=== PATIENT | female | born 1970 | race Caucasian/White ===

== ENCOUNTER → 2020-02-08 11:33 | Outpatient (CLI) | payer OTHER, SELFPAY ==
--- NOTE | 2020-02-08 | DI.US.S_ITS ---
PROCEDURE: US PELVIC COMPLETE INDICATIONS: FEMALE INFLAMMATORY DISEASE, UNSPECIFIED TECHNIQUE: Real-time scanning was performed of the pelvic organs, with image documentation. Additional endovaginal scanning was necessary due to incomplete visualization of the adnexal and endometrial structures by transabdominal scanning. COMPARISON: None. FINDINGS: Transabdominal scanning: Limited scanning through the kidneys shows no hydronephrosis. No pathologic free abdominal or pelvic fluid. Endovaginal scanning: Uterus: Uterus is enlarged in size at 15.3 x 6.6 x 7.2 cm. The endometrium measures 16 mm in combined thickness. Numerous uterine fibroids are present including midline posterior fibroid measuring 2.2 x 2.5 x 2.1 cm. Midline anterior fibroid measuring 2.1 x 2.3 x 2.2 cm. Right anterior fibroid measuring 2.0 x 1.8 x 2.0 cm. Additional smaller fibroids are present Ovaries: Right ovary measures 4.9 x 3.3 x 3.2 cm. There is a right ovarian cystic lesion measuring 3.0 cm, technically indeterminate. Left ovary is not sonographically visible IMPRESSION: Multiple uterine fibroids as above Right ovarian cystic lesion, technically non-specific. Cystic neoplastic possibilities cannot be excluded in the absence of prior studies. Recommend continued ultrasound surveillance. Left ovary not sonographically visible or evaluated Dictated by: Shaquille Montero M.D. on 02/08/2020 at 16:43 Approved by: Shaquille Montero M.D. on 02/08/2020 at 16:45
== END ==
PROVIDERS: PCP Physician Assistant Medical; Referring Provider Physician Assistant Medical; Visit Provider Physician Assistant Medical
DX: N73.9 Female pelvic inflammatory disease, unspecified (principal); R87.5 Abnormal microbiological findings in specimens from female genital organs; D25.9 Leiomyoma of uterus, unspecified; N83.201 Unspecified ovarian cyst, right side
CPT/HCPCS: 76830; 76856

== ENCOUNTER 2020-02-09 12:12 | Emergency (ER) | payer OTHER, SELFPAY ==
--- NOTE | 2020-02-09 12:24 | ED.GENADULT ---
HPI - General Adult General Chief complaint: Abdominal Pain Stated complaint: Pelvic pain/Needs IV and run tests Time Seen by Provider: 02/09/20 12:18 History of Present Illness HPI narrative: Otherwise healthy 49-year-old young woman who had an IUD removed 2 weeks ago. The IUD had been in place for almost 20 years. The removal itself was reportedly unremarkable, it sounds like the strings were not easily visible there were 3 attempts needed but the device came out without significant pain. One week Afterward, she developed fevers and pelvic pain was seen by her primary care provider who had started her on Augmentin a 1000 mg, 2 pills b.i.d. and ordered a pelvic ultrasound. Results are included today. Pain and fevers or worsening and she is sent to the emergency department with a presumptive diagnosis of pelvic inflammatory disease post IUD removal for further evaluation and consideration of IV antibiotics. She describes pelvic pain radiating to her sacrum. Significant tenderness with the intravaginal probe that was done with the ultrasound yesterday, no discharge, she has had no new sexual partners. She is having no vaginal bleeding. There is no odors from her vagina. She notes that with 4 days of Augmentin her symptoms have not improved at all. She is now developing more peritoneal type symptoms worse with bouncing in the car and sitting. Describes fevers as high as 102? over the last couple of days, no dysuria, no diarrhea no vomiting, no chest pain, no cough. Related Data Home Medications Medication Instructions Recorded Confirmed amoxicillin-pot clavulanate 2 tab PO Q12H 02/09/20 02/09/20 escitalopram oxalate 10 mg PO QPM 02/09/20 02/09/20 ibuprofen 200 mg PO PRN PRN 02/09/20 02/09/20 loratadine-pseudoephedrine 1 tab PO DAILY PRN 02/09/20 02/09/20 [Lorata-D] norethindrone-e.estradiol-iron [Lo 1 tab PO QPM 02/09/20 02/09/20 Loestrin Fe] olopatadine 1 drp OPHTHALMIC (EYE) BID 02/09/20 02/09/20 Previous Rx's Medication Instructions Recorded doxycycline hyclate 100 mg PO BID #14 cap 02/09/20 naproxen [Naprosyn] 500 mg PO BID #60 tab 02/09/20 Allergies Allergy/AdvReac Type Severity Reaction Status Date / Time No Known Drug Allergies Allergy Verified 02/09/20 14:24 Review of Systems Review of Systems Narrative: All systems reviewed and are unremarkable except as noted in HPI and below Patient History Medical History (Updated 02/09/20 @ 14:56 by Bell Goncalves MD) Healthy adult (Acute) Exam Narrative Exam Narrative: General: Healthy appearing, in no acute distress. Able to give a complete and coherent history. Well-nourished well-developed HEENT: Moist mucous membranes, normal sclera with reactive pupils, Neck: No JVD, supple Respiratory: Lungs are clear to auscultation, no wheezing no rales no rhonchi. Full and symmetrical air movement Cardiac: Regular rate and rhythm no murmurs no bruits Abdomen: Soft, tender suprapubic without rebound or guarding, good bowel tones, no flank pain Pelvic: Cervical motion tenderness yesterday with ultrasound exam, no new discharge she declines repeat bimanual exam today due to pain Skin: Warm and dry, no rashes Neurologic: Grossly neurologically intact with no obvious asymmetries or abnormalities Extremities: No trauma, well perfused Psych: Cooperative, appropriate insight and affect Initial Vital Signs Initial Vital Signs: Vital Signs Temperature 98.0 F 02/09/20 12:28 Pulse Rate 75 02/09/20 12:28 Respiratory Rate 14 02/09/20 12:28 Blood Pressure 137/85 02/09/20 12:28 Pulse Oximetry 98 02/09/20 12:28 Course Orders Ordered: ED Orders 02/09/20 12:55 Complete Blood Count AUTO DIFF Stat Comprehensive Metabolic Panel Stat Lactate (Lactic Acid) Stat 02/09/20 13:17 Blood Culture Stat 02/09/20 14:09 CT abdomen pelvis w con Stat Discontinued Medications Doxycycline Hyclate (Vibramycin) 100 mg PO NOW ONE Stop: 02/09/20 12:53 Last Admin: 02/09/20 14:02 Dose: 100 mg Documented by: CVANCE Cefotetan Disodium/Dextrose (Cefotan) 2 gm in 50 mls @ 100 mls/hr IV NOW ONE Stop: 02/09/20 13:21 Last Admin: 02/09/20 14:00 Dose: 100 mls/hr Documented by: CVANCE Sodium Chloride (Normal Saline 0.9%) 1,000 mls @ 1,000 mls/hr IV BOLUS ONE Stop: 02/09/20 13:51 Last Admin: 02/09/20 14:30 Dose: 1,000 mls/hr Documented by: CADE Ketorolac Tromethamine (Toradol) 15 mg IV NOW ONE Stop: 02/09/20 12:53 Last Admin: 02/09/20 13:04 Dose: 15 mg Documented by: CADE Vital Signs Vital signs: Vital Signs - 8 hr 02/09/20 12:28 02/09/20 14:47 Temperature 98.0 F 97.6 F Pulse Rate 75 67 Respiratory Rate 14 12 Blood Pressure 137/85 Blood Pressure [Right Arm] 137/94 H Pulse Oximetry 98 99 Medical Decision Making Lab Data Result diagrams: 02/09/20 12:55 02/09/20 12:55 Labs: Lab Results 02/09/20 02/09/20 02/09/20 Range/Units 12:55 12:55 12:55 WBC 8.3 (4.5-11.0) X10^3/uL RBC 4.89 (4.0-5.2) X10^6/uL Hgb 14.2 (12.0-16.0) g/dL Hct 41.3 (36-46) % MCV 84.5 (80-100) fL MCH 29.0 (26-34) PG MCHC 34.3 (30-36) % RDW 13.8 (11.6-14.8) % Plt Count 231 (150-400) X10^3/uL Neut % (Auto) 65.4 (50-75) % Lymph % (Auto) 28.5 (25-40) % [place]ett % (Auto) 5.2 (3-14) % Eos % (Auto) 0.4 L (2-4) % Baso % (Auto) 0.5 (0-2) % Neut # (Auto) 5500 (2277-2166) /uL Lymph # (Auto) 2400 (7268-2289) /uL Pickett # (Auto) 400 (0-900) /uL Eos # (Auto) 0 (0-450) /uL Baso # (Auto) 0 (0-100) /uL Sodium 136 L (137-145) mmol/L Potassium 4.6 (3.4-5.1) mmol/L Chloride 104 (98-107) mmol/L Carbon Dioxide 24 (22-32) mmol/L BUN 15 (7-17) mg/dL Creatinine 0.60 (0.52-1.04) mg/dL Estimated GFR > 60.0 (>60) mL/min BUN/Creatinine Ratio 25.0 H (6-22) Glucose 99 (70-100) mg/dL Lactate 0.6 L (0.7-2.1) mmol/L Calcium 9.2 (8.4-10.2) mg/dL Total Bilirubin 0.6 (0.2-1.3) mg/dL AST 28 (14-36) IU/L ALT 17 (<35) IU/L Alkaline Phosphatase 51 (38-126) U/L Total Protein 8.0 (6.3-8.2) g/dL Albumin 4.5 (3.5-5.0) g/dL Globulin 3.5 (1.7-4.1) g/dL Albumin/Globulin Ratio 1.3 (1.0-2.8) Urine Dip Bedside Urine Glucose Negative Bedside Urine Bilirubin - Negative Bedside Urine Ketone - Negative Urine Specific [place] 1.010 Bedside Urine Occult Blood - Negative Bedside Urine pH 7.0 Bedside Urine Protein - Negative Bedside Urine Urobilinogen - Negative Bedside Urine Nitrite - Negative Bedside Urine Leukocytes - Negative Esterase Point of care testing: Urine Dip Bedside Urine Glucose Negative Bedside Urine Bilirubin - Negative Bedside Urine Ketone - Negative Urine Specific [place] 1.010 Bedside Urine Occult Blood - Negative Bedside Urine pH 7.0 Bedside Urine Protein - Negative Bedside Urine Urobilinogen - Negative Bedside Urine Nitrite - Negative Bedside Urine Leukocytes - Negative Esterase Imaging Data Pelvic ultrasound 02/08/2020: Radiologist's Impression: FINDINGS: Transabdominal scanning: Limited scanning through the kidneys shows no hydronephrosis. No pathologic free abdominal or pelvic fluid. Endovaginal scanning: Uterus: Uterus is enlarged in size at 15.3 x 6.6 x 7.2 cm. The endometrium measures 16 mm in combined thickness. Numerous uterine fibroids are present including midline posterior fibroid measuring 2.2 x 2.5 x 2.1 cm. Midline anterior fibroid measuring 2.1 x 2.3 x 2.2 cm. Right anterior fibroid measuring 2.0 x 1.8 x 2.0 cm. Additional smaller fibroids are present Ovaries: Right ovary measures 4.9 x 3.3 x 3.2 cm. There is a right ovarian cystic lesion measuring 3.0 cm, technically indeterminate. Left ovary is not sonographically visible IMPRESSION: Multiple uterine fibroids as above Right ovarian cystic lesion, technically non-specific. Cystic neoplastic possibilities cannot be excluded in the absence of prior studies. Recommend continued ultrasound surveillance. Left ovary not sonographically visible or evaluated Dictated by: Shaquille Montero M.D. on 02/08/2020 at 16:43 CT scan - abdomen/pelvis: Radiologist's Impression: IMPRESSION: 1. Fibroid uterus with mildly prominent endometrial thickness. 2. No evidence of acute abdominal process. 3. Incidental note made of probable small lipoma of the liver. Dictated by: Miles Mcpherson M.D. on 02/09/2020 at 14:15 MDM Narrative Medical decision making narrative: 49-year-old perimenopausal woman with increasingly irregular and heavy periods. Two weeks ago with an IUD removed increasing pain and pelvic discomfort since. Was started on antibiotics with no influence. No fevers or other signs of illness. Workup today is unremarkable for infectious disease or other etiologies to explain the pelvic pain. Of note she does have a fairly thick endometrial lining and is overdue for her menstrual cycle. I suspect that with the fibroid uterus and the longstanding IUD removed she has had more uterine irritability and is likely ready to start her menses in the next day or so. We had a long discussion about andrea menopause and symptoms associated with this. She has been noticing increasing irritability as well as irregular and heavier menses recently. Will have her complete her course of Augmentin and drop back to 1 p.o. b.i.d.. Will add 7 days of doxycycline discover any additional uterine infectious disease concerns. Will add 500 mg of Naprosyn b.i.d. for the next couple of days and to continue through the 1st couple of days of her menstrual cycle to reduce uterine irritability and cramping. She will follow-up with her primary care physician and I suggested she consider asking about hormone replacement therapy prior to completely going through menopause to help with some of the perimenopausal symptoms She is safe for home discharge at this time Discharge Plan Departure Patient Disposition: Home Clinical Impression: Pelvic pain Fibroid, uterine Qualifiers: Uterine leiomyoma location: submucous and subserous Qualified Code(s): D25.0 - Submucous leiomyoma of uterus Instructions: DI for Uterine Fibroids Activity Restrictions/Additional Instructions: Thank you for coming in. I am glad that I have not found anything life-threatening nor needing additional workup or hospitalization. I suspect that the pain you are having is from the IUD being removed in the setting of a uterus with quite a few fibroids. The lining of your uterus is fairly thick so I suspect the menstrual cycle that is going to start in the next day or 2 is likely going to be fairly heavy and associated with quite a few cramps. I a.m. going to recommend that you finish the Augmentin that you currently have, you only need 1 pill in the morning and 1 pill at night. To this, I am going to add a prescription for doxycycline 100 mg in the morning and 100 mg at night. I am also going to give you a prescription for Naprosyn 500 mg twice a day. This is a pain reliever similar to ibuprofen and you can take it and drive. It helps control the pain all day long and I think we will find it very helpful with your job and in controlling pain related to your uterus. It is perfectly okay to use it for the 1st few days of your menses to help with menstrual cramps as well. Sometimes it can actually also be helpful in decreasing the total volume of blood that you lose with a menstrual cycle. All prescriptions have been electronically sent to [facility] in [facility] with all the menopausal changes! Prescriptions: New doxycycline hyclate 100 mg capsule 100 mg PO BID Qty: 14 RF: 0 naproxen [Naprosyn] 500 mg tablet 500 mg PO BID Qty: 60 RF: 0 No Action loratadine-pseudoephedrine [Lorata-D] 10-240 mg tablet extended release 24 hr 1 tab PO DAILY PRN (Reason: Allergy Symptoms) RF: 0 olopatadine 0.1 % drops 1 drp ophthalmic (eye) BID RF: 0 escitalopram oxalate 10 mg tablet 10 mg PO QPM RF: 0 amoxicillin-pot clavulanate 1,000-62.5 mg tablet extended release 12 hr 2 tab PO Q12H RF: 0 Lo Loestrin Fe 1 mg-10 mcg (24)/10 mcg (2) tablet 1 tab PO QPM RF: 0 ibuprofen 200 mg Tablet 200 mg PO PRN PRN (Reason: pain) RF: 0 Referrals: Ale Kirk [Primary Care Provider] -
[2020-02-09 12:28] VITALS: BP 137/85; PULSE 75; RESP 14; TEMP 36.7; O2SAT 98; BMI 30.9
[2020-02-09 13:03] LABS: Add Manual Diff / Slide Review NO; Basophils Absolute Auto 0 /uL (0-100); Basophils Percent Auto 0.5 % (0-2); Eosinophils Absolute Auto 0 /uL (0-450); Eosinophils Percent Auto 0.4 % (2-4); Hematocrit 41.3 % (36-46); Hemoglobin 14.2 g/dL (12.0-16.0); Lymphocytes Absolute Auto 2400 /uL (1100-4500); Lymphocytes Percent Auto 28.5 % (25-40); Mean Corpuscular HGB Conc 34.3 % (30-36); Mean Corpuscular Volume 84.5 fL (80-100); Monocytes Absolute Auto 400 /uL (0-900); Monocytes Percent Auto 5.2 % (3-14); Neutrophils Absolute Auto 5500 /uL (1500-7000); Neutrophils Percent Auto 65.4 % (50-75); Platelet Count 231 X10^3/uL (150-400); Red Blood Cell Count 4.89 X10^6/uL (4.0-5.2); Red Cell Distribution Width 13.8 % (11.6-14.8); White Blood Cell Count 8.3 X10^3/uL (4.5-11.0)
[2020-02-09] MEDS: KETOROLAC 60 MG/2 ML VIAL 15 MG IV (13:04)
[2020-02-09 13:15] LABS: Alanine Aminotransferase 17 IU/L (<35); Albumin 4.5 g/dL (3.5-5.0); Albumin Globulin Ratio 1.3 (1.0-2.8); Alkaline Phosphatase 51 U/L (38-126); Aspartate Aminotransferase 28 IU/L (14-36); Bilirubin Total 0.6 mg/dL (0.2-1.3); Blood Urea Nitrogen 15 mg/dL (7-17); Calcium 9.2 mg/dL (8.4-10.2); Carbon Dioxide 24 mmol/L (22-32); Chloride 104 mmol/L (98-107); Estimated Glomerular Filt Rate > 60.0 mL/min (>60); Globulin 3.5 g/dL (1.7-4.1); Glucose 99 mg/dL (70-100); HEMOLYSIS 50 (0-50); Potassium 4.6 mmol/L (3.4-5.1); Sodium 136 mmol/L (137-145)
[2020-02-09 13:16] LABS: Lactate (Lactic Acid) 0.6 mmol/L (0.7-2.1)
[2020-02-09] MEDS: CEFOTETAN 2 GM/50 ML PIGGYBACK IV (14:00)
[2020-02-09] MEDS: DOXYCYCLINE HYCLATE 100 MG TABLET PO (14:02)
--- NOTE | 2020-02-09 14:09 | DI.CT.S_ITS ---
PROCEDURE: CT ABDOMEN PELVIS W CON INDICATIONS: pelvic pain TECHNIQUE: After the administration of intravenous contrast, 5 mm thick sections acquired from the diaphragm to the symphysis. 5 mm coronal and sagittal reformats were acquired. For radiation dose reduction, the following was used: automated exposure control, adjustment of mA and/or kV according to patient size. COMPARISON: None. FINDINGS: Image quality: Excellent. ABDOMEN: Lung bases: Lung bases are clear. Heart size is normal. Solid organs: Probable incidental tiny lipoma of the liver, measuring 1.1 cm. Left lobe liver cyst measuring 5.0 x 6.0 cm. Probable septated left lobe liver cyst measuring 2.4 x 1.8 cm. No suspicious liver masses. Gallbladder is unremarkable. Biliary system is non dilated. Pancreas enhances normally. Spleen is normal in size and enhancement. A 1.4 cm left adrenal nodule likely represents a left adrenal adenoma. Kidneys demonstrate normal size and enhancement, without hydronephrosis. Peritoneum and bowel: Bowel loops demonstrate normal wall thickness and caliber. No free fluid or air. No abscess cavity. Nodes and vessels: No retroperitoneal or mesenteric adenopathy by size criteria. Aorta and inferior vena cava are normal in size. Miscellaneous: No ventral hernias. PELVIS: Genitourinary: Bladder wall thickness is normal. Miscellaneous: No inguinal hernias or adenopathy. Enlarged, fibroid uterus, with numerous uterine fibroids. No endometrial gas. Somewhat prominent endometrial thickness. The left Bones: No suspicious bony lesions. No vertebral body compression fractures. IMPRESSION: 1. Fibroid uterus with mildly prominent endometrial thickness. 2. No evidence of acute abdominal process. 3. Incidental note made of probable small lipoma of the liver. Dictated by: Miles Mcpherson M.D. on 02/09/2020 at 14:15 Approved by: Miles Mcpherson M.D. on 02/09/2020 at 14:22
[2020-02-09] MEDS: SODIUM CHLORIDE 0.9% 1,000 ML 1000 ML IV (14:30)
[2020-02-09 14:47] VITALS: BP 137/94; PULSE 67; RESP 12; TEMP 36.4; O2SAT 99
--- NOTE | 2020-03-16 10:35 | PC.NURSE ---
IV Normal Saline Bolus started at 14;03 and stopped at 1503
--- NOTE | 2020-03-22 13:16 | PC.NURSE ---
Per Rosemarie HADDAD, Cfotan stoped at 1503 on 02/09/20.
--- NOTE | 2020-03-23 19:24 | PC.NURSE ---
Addendum entered by Rosemarie Diaz R.N. 03/23/20 19:33: cefotan 2gm 50ml finished infusing at 1430 Original Note: cefotan 50mls finished infusing at 1321
== END 2020-02-09 15:12 | disposition home or self-care (01) ==
PROVIDERS: Emergency Provider Emergency Medicine; PCP Physician Assistant Medical
DX: R10.2 Pelvic and perineal pain (principal); D25.0 Submucous leiomyoma of uterus
CPT/HCPCS: 36415; 74177; 80053; 81003; 83605; 85025; 87040; 96365; 96375; 99284; J1885; Q9967

== ENCOUNTER → 2020-05-25 13:58 | Outpatient (CLI) | payer OTHER, SELFPAY ==
[2020-05-28 04:36] LABS: COVID19 Sendout Not Detected (Not Detected)
== END ==
PROVIDERS: PCP Physician Assistant Medical; Visit Provider Physician Assistant
DX: Z03.818 Encounter for observation for suspected exposure to other biological agents ruled out (principal)
CPT/HCPCS: 87635

== ENCOUNTER → 2024-09-07 14:05 | Outpatient (CLI) | payer OTHER, SELFPAY ==
--- NOTE | 2024-09-07 14:13 | EKG_ITS ---
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
== END ==
PROVIDERS: PCP Physician Assistant Medical
DX: M25.372 Other instability, left ankle (principal); S93.499A Sprain of other ligament of unspecified ankle, initial encounter; M25.579 Pain in unspecified ankle and joints of unspecified foot
CPT/HCPCS: 93005